=== PATIENT | male | born 1990 | race African-American/Black ===

== ENCOUNTER 2016-10-16 11:27 | Emergency (ER) | payer SELFPAY ==
[~2016-10-16] VITALS: Ht 170.2 cm; Wt 61.4 kg
[~2016-10-16 11:27] MED LIST: MOTRIN600 MG PO; NAPROSYN500 MG PO; PERCOCET 5/31 TABLET PO; TORADOL10 MG PO
[2016-10-16 13:21] LABS: CHLORIDE 106 mEq/L (99-109); POTASSIUM 4.2 mEq/L (3.7-5.4); SODIUM 140 mEq/L (136-147)
[2016-10-16 13:23] LABS: GLUCOSE 101 mg/dL (70-99)
[2016-10-16 13:24] LABS: ANION GAP 10 MEQ/L (2-14)
[2016-10-16 13:27] LABS: GFR ESTIMATE (CALCULATED) > 59 mL/min/
[2016-10-16 13:28] LABS: UREA NITROGEN (BUN) 11 mg/dL (9-23)
[2016-10-16 13:46] LABS: ADD MIUA? NO; BILIRUBIN NEGATIVE; BLOOD NEGATIVE; COLOR STRAW ((YELLOW)); GLUCOSE (STRIP) NEGATIVE; KETONES NEGATIVE; LEUKOCYTES NEGATIVE; NITRITE NEGATIVE; PROTEIN (STRIP) NEGATIVE; SPECIFIC GRAVITY 1.008 (1.000-1.030); UROBILINOGEN 0.2 MG/DL (0.2-1.0)
[2016-10-16] MEDS ORDERED: INDOCIN50 MG PO (14:29)
[2016-10-16 14:51] VITALS: BP 118/74
== END 2016-10-16 15:21 | disposition home or self-care (01) ==
LOC: EME 11:27
PROVIDERS: Physician Assistant
DX: R07.89 Other chest pain (principal); Z72.0 Tobacco use
CPT/HCPCS: 71020; 80048; 81003; 93005; 99281; 99284

== ENCOUNTER 2016-10-18 18:06 | Emergency (ER) | payer OTHER ==
[~2016-10-18] VITALS: Ht 170.2 cm; Wt 58.9 kg
[~2016-10-18 18:06] MED LIST changes: +INDOCIN50 MG PO
[2016-10-18 21:02] LABS: HEMATOCRIT 44.1 % (38.0-50.0); MCH 31.2 PG (29.0-34.0); MCHC 33.1 G/DL (30.0-36.0); MCV 94.2 FL (86-99); MEAN PLAT.VOLUME 9.3 uM^3 (9.0-12.4); PLATELET COUNT 338 K/uL (156-360); RBC DIS.WIDTH-CV 11.6 % (11.8-14.6); RBC DIS.WIDTH-SD 40.3 % (39-53); RED BLOOD COUNT 4.68 M/uL (4.00-5.50); WHITE BLOOD COUNT 7.5 K/uL (4.1-10.2)
[2016-10-18 21:14] LABS: CHLORIDE 103 mEq/L (99-109); POTASSIUM 3.9 mEq/L (3.7-5.4); SODIUM 141 mEq/L (136-147)
[2016-10-18 21:15] LABS: GLUCOSE 96 mg/dL (70-99)
[2016-10-18 21:17] LABS: ANION GAP 15 MEQ/L (2-14); D-DIMER ELISA 0.16 mg/L FEU (< 0.57)
[2016-10-18 21:19] LABS: GFR ESTIMATE (CALCULATED) > 59 mL/min/
[2016-10-18 21:20] LABS: UREA NITROGEN (BUN) 12 mg/dL (9-23)
[2016-10-18 21:26] LABS: TROP-I INTERPRETATION NEGATIVE; TROPONIN-I < 0.01 ng/mL (0.0-0.30)
[2016-10-18 21:51] LABS: ADD MIUA? YES; BILIRUBIN NEGATIVE; BLOOD NEGATIVE; COLOR YELLOW ((YELLOW)); GLUCOSE (STRIP) NEGATIVE; KETONES NEGATIVE; LEUKOCYTES MODERATE; NITRITE NEGATIVE; PROTEIN (STRIP) NEGATIVE; SPECIFIC GRAVITY 1.011 (1.000-1.030); UROBILINOGEN 0.2 MG/DL (0.2-1.0)
[2016-10-18 22:06] LABS: BACTERIA NONE SEEN /HPF; EPITHELIAL CELLS RARE /HPF; MUCUS TRACE /LPF; RED BLOOD CELLS 0-5 /HPF (0-5); WHITE BLOOD CELLS 0-5 /HPF (0-5)
[2016-10-18] MEDS ORDERED: LORAZEPAM0.5 MG PO (23:36)
[2016-10-18] MEDS ORDERED: ZANTAC300 MG PO (23:36)
[2016-10-18 23:55] LABS: TROP-I INTERPRETATION NEGATIVE; TROPONIN-I < 0.01 ng/mL (0.0-0.30)
[2016-10-19 00:39] VITALS: BP 142/81
== END 2016-10-19 00:40 | disposition home or self-care (01) ==
LOC: EME 18:06
PROVIDERS: Emergency Medicine; Physician Assistant
DX: R07.89 Other chest pain (principal); F41.9 Anxiety disorder, unspecified; Z72.0 Tobacco use
CPT/HCPCS: 71020; 80048; 81003; 84484; 85027; 85379; 93005; 99281; 99284

== ENCOUNTER 2017-01-06 13:46 | Emergency (ER) | payer OTHER ==
[~2017-01-06] VITALS: Ht 170.2 cm; Wt 60.3 kg
[~2017-01-06 13:46] MED LIST changes: +LORAZEPAM0.5 MG PO; +ZANTAC300 MG PO
[2017-01-06] MEDS ORDERED: PAXIL20 MG PO (15:03)
[2017-01-06] MEDS ORDERED: CLONAZEPAM0.5 MG PO (15:03)
[2017-01-06] MEDS ORDERED: INDOCIN50 MG PO (16:14)
[2017-01-06] MEDS ORDERED: LIDODERM 5% P1 PATCH TD (16:14)
[2017-01-06 16:30] VITALS: BP 115/89
== END 2017-01-06 16:44 | disposition home or self-care (01) ==
LOC: EME 13:46
DX: S39.012A Strain of muscle, fascia and tendon of lower back, initial encounter (principal); X58.XXXA Exposure to other specified factors, initial encounter; F17.200 Nicotine dependence, unspecified, uncomplicated
CPT/HCPCS: 99281; 99284

== ENCOUNTER 2017-04-02 15:14 | Emergency (ER) | payer OTHER ==
[~2017-04-02] VITALS: Ht 170.2 cm; Wt 62.0 kg
[~2017-04-02 15:14] MED LIST changes: +CLONAZEPAM0.5 MG PO; +LIDODERM 5% P1 PATCH TD; +PAXIL20 MG PO
[2017-04-02] MEDS ORDERED: PERCOCET 5/31 TABLET PO (18:16)
[2017-04-02 18:46] VITALS: BP 150/81
== END 2017-04-02 18:47 | disposition home or self-care (01) ==
LOC: EME 15:14
DX: S16.1XXA Strain of muscle, fascia and tendon at neck level, initial encounter (principal); S39.012A Strain of muscle, fascia and tendon of lower back, initial encounter; R51 Headache; V49.50XA Passenger injured in collision with unspecified motor vehicles in traffic accident, initial encounter; Y92.410 Unspecified street and highway as the place of occurrence of the external cause; F17.200 Nicotine dependence, unspecified, uncomplicated
CPT/HCPCS: 70450; 72110; 72125; 99281; 99284

== ENCOUNTER 2017-10-21 18:22 | Emergency (ER) | payer OTHER ==
[~2017-10-21] VITALS: Ht 170.2 cm; Wt 58.8 kg
[2017-10-21 20:19] LABS: BASOPHIL (%) 0.7 % (0-1); EOSINOPHIL (%) 3.1 % (0-5); EOSINOPHIL COUNT 0.2 K/uL (0-0.3); HEMATOCRIT 40.4 % (38.0-50.0); HEMOGLOBIN 14.3 G/DL (12.5-16.6); IMMATURE GRANULOCYTE (%) 0.2 % (0.0-0.7); LYMPHOCYTE (%) 28.3 % (15-42); LYMPHOCYTE COUNT 1.7 K/uL (1.0-2.8); MCH 31.7 PG (29.0-34.0); MCHC 35.4 G/DL (30.0-36.0); MCV 89.6 FL (86-99); MONOCYTE (%) 9.9 % (3-12); MONOCYTE COUNT 0.6 K/uL (0-0.8); NEUTROPHIL (%) 57.8 % (45-76); NEUTROPHIL COUNT 3.5 K/uL (1.8-6.4); PLATELET COUNT 284 K/uL (156-360); RBC DIS.WIDTH-CV 11.6 % (11.8-14.6); RBC DIS.WIDTH-SD 38.2 % (39-53); RED BLOOD COUNT 4.51 M/uL (4.00-5.50); WHITE BLOOD COUNT 6.1 K/uL (4.1-10.2)
[2017-10-21 20:27] LABS: ALBUMIN 4.6 g/dL (3.2-4.8); CHLORIDE 106 mEq/L (99-109); POTASSIUM 3.8 mEq/L (3.7-5.4); SODIUM 140 mEq/L (136-147)
[2017-10-21 20:29] LABS: GLUCOSE 93 mg/dL (70-99); TOTAL PROTEIN 7.4 g/dL (6.4-8.3)
[2017-10-21 20:31] LABS: TOTAL BILIRUBIN 1.3 mg/dL (0.0-1.0)
[2017-10-21 20:32] LABS: SERUM ETHYL ALCOHOL < 10 mg/dL
[2017-10-21 20:33] LABS: ALKALINE PHOSPHATASE 104 IU/L (3-129); GFR ESTIMATE (CALCULATED) > 59 mL/min/ (58.99-99999)
[2017-10-21 20:34] LABS: AST (GOT) 14 IU/L (2-34); UREA NITROGEN (BUN) 8 mg/dL (9-23)
[2017-10-21 20:36] LABS: ALT (GPT) 9 IU/L (3-49)
[2017-10-21] MEDS ORDERED: ULTRAM50 MG PO (22:33)
[2017-10-21 23:30] VITALS: BP 136/86
== END 2017-10-21 23:32 | disposition home or self-care (01) ==
LOC: EME 18:22
PROVIDERS: Emergency Medicine
DX: S20.229A Contusion of unspecified back wall of thorax, initial encounter (principal); S06.0X0A Concussion without loss of consciousness, initial encounter; W11.XXXA Fall on and from ladder, initial encounter; Y93.H9 Activity, other involving exterior property and land maintenance, building and construction; F41.9 Anxiety disorder, unspecified; F17.200 Nicotine dependence, unspecified, uncomplicated
CPT/HCPCS: 70450; 71260; 72125; 72129; 72132; 74177; 80053; 85025; 99281; 99285; G0480; J7030

== ENCOUNTER 2017-10-26 15:12 | Observation (INO) | payer OTHER ==
[~2017-10-26] VITALS: Ht 170.2 cm; Wt 58.4 kg
[~2017-10-26 15:12] MED LIST changes: +ULTRAM50 MG PO
[2017-10-26 16:05] LABS: HEMATOCRIT 39.1 % (38.0-50.0); HEMOGLOBIN 13.7 G/DL (12.5-16.6); MCH 31.6 PG (29.0-34.0); MCV 90.1 FL (86-99); PLATELET COUNT 287 K/uL (156-360); RBC DIS.WIDTH-CV 11.6 % (11.8-14.6); RBC DIS.WIDTH-SD 38.2 % (39-53); RED BLOOD COUNT 4.34 M/uL (4.00-5.50); WHITE BLOOD COUNT 4.3 K/uL (4.1-10.2)
[2017-10-26 16:13] LABS: ALBUMIN 4.5 g/dL (3.2-4.8); CHLORIDE 108 mEq/L (99-109); SODIUM 140 mEq/L (136-147)
[2017-10-26 16:16] LABS: GLUCOSE 100 mg/dL (70-99); TOTAL PROTEIN 7.2 g/dL (6.4-8.3)
[2017-10-26 16:18] LABS: TOTAL BILIRUBIN 1.5 mg/dL (0.0-1.0)
[2017-10-26 16:19] LABS: ALKALINE PHOSPHATASE 102 IU/L (3-129); CREATININE 0.8 mg/dL (0.6-1.3); GFR ESTIMATE (CALCULATED) > 59 mL/min/ (58.99-99999); SERUM ETHYL ALCOHOL < 10 mg/dL
[2017-10-26 16:21] LABS: AST (GOT) 14 IU/L (2-34); UREA NITROGEN (BUN) 11 mg/dL (9-23)
[2017-10-26 16:22] LABS: ALT (GPT) 9 IU/L (3-49)
[2017-10-26 17:15] LABS: APPEARANCE SL.HAZY ((CLEAR)); BILIRUBIN NEGATIVE; BLOOD NEGATIVE; COLOR YELLOW ((YELLOW)); GLUCOSE (STRIP) NEGATIVE; KETONES NEGATIVE; LEUKOCYTES NEGATIVE; NITRITE NEGATIVE; PROTEIN (STRIP) NEGATIVE; SPECIFIC GRAVITY 1.009 (1.000-1.030); UROBILINOGEN 0.2 MG/DL (0.2-1.0)
[2017-10-26 17:23] LABS: THC CANNABINOIDS NEGATIVE (50 ng/mL)
[2017-10-26 17:24] LABS: AMPHETAMINE NEGATIVE (500 ng/mL); BARBITURATES NEGATIVE (200 ng/mL); BENZODIAZEPINES NEGATIVE (150 ng/mL); BUPRENORPHINE NEGATIVE (10 ng/mL); COCAINE PRESUMPTIVE POSITIVE (150 ng/mL); METHADONE NEGATIVE (200 ng/mL); METHAMPHETAMINE NEGATIVE (500 ng/mL); OPIATES (MORPHINE) NEGATIVE (100 ng/mL); OXYCODONE NEGATIVE (100 ng/mL); PHENCYCLIDINE NEGATIVE (25 ng/mL); PROPOXYPHENE NEGATIVE (300 ng/mL); TRICYCLIC ANTIDEPRESSANTS NEGATIVE (300 ng/mL)
[2017-10-26 17:27] LABS: BACTERIA NONE SEEN /HPF; EPITHELIAL CELLS NONE SEEN /HPF; MUCUS TRACE /LPF; RED BLOOD CELLS 0-5 /HPF (0-5); WHITE BLOOD CELLS 0-5 /HPF (0-5)
[2017-10-26] MEDS ORDERED: PAROXETINE HCL40 MG PO (18:54)
[2017-10-26] MEDS ORDERED: IBUPROFEN800 MG PO (18:56)
[2017-10-26 22:13] VITALS: BP 108/57
[2017-10-27 00:06] VITALS: BP 168/56
[2017-10-27 00:34] LABS: HEMATOCRIT 37.5 % (38.0-50.0); HEMOGLOBIN 13.1 G/DL (12.5-16.6); MCV 90.4 FL (86-99)
[2017-10-27 04:18] VITALS: BP 96/54
[2017-10-27 06:20] LABS: HEMATOCRIT 35.8 % (38.0-50.0); HEMOGLOBIN 12.1 G/DL (12.5-16.6); MCH 31.3 PG (29.0-34.0); MCHC 33.8 G/DL (30.0-36.0); MCV 92.5 FL (86-99); PLATELET COUNT 290 K/uL (156-360); RBC DIS.WIDTH-CV 11.7 % (11.8-14.6); RBC DIS.WIDTH-SD 39.6 % (39-53); RED BLOOD COUNT 3.87 M/uL (4.00-5.50); WHITE BLOOD COUNT 5.4 K/uL (4.1-10.2)
[2017-10-27 06:38] LABS: CHLORIDE 111 MEQ/L (99-109); CREATININE 0.9 MG/DL (0.6-1.3); GFR ESTIMATE (CALCULATED) > 59 mL/min/ (58.99-99999); GLUCOSE 92 mg/dL (70-99); POTASSIUM 3.8 MEQ/L (3.7-5.4); SODIUM 142 MEQ/L (136-147); UREA NITROGEN (BUN) 10 mg/dL (9-23)
[2017-10-27 08:15] VITALS: BP 120/66
[2017-10-27 11:36] VITALS: BP 133/71
[2017-10-27 15:20] VITALS: BP 114/66
== END 2017-10-27 16:37 | disposition home or self-care (01) ==
LOC: EME 15:12 → 4SOUTH 20:34 → EDOF 20:34 → ENRESERV 20:36 → 4SOUTH 21:43
PROVIDERS: Emergency Medicine; Hospitalist
DX: R41.82 Altered mental status, unspecified (principal); R53.83 Other fatigue; F14.10 Cocaine abuse, uncomplicated; M79.602 Pain in left arm; R51 Headache; S06.0X9D Concussion with loss of consciousness of unspecified duration, subsequent encounter; R04.2 Hemoptysis; F41.9 Anxiety disorder, unspecified; Z88.6 Allergy status to analgesic agent
CPT/HCPCS: 70450; 70551; 71260; 73030; 74177; 80048; 80053; 81003; 84999; 85014; 85018; 85027; 95819; 99281; 99285; G0378; G0480; G8978 GP CJ; G8979 GP CH; G8980 CJ; G8987 GO CJ; G8988 GO CH; G8989 CJ; J3010; J7030

== ENCOUNTER 2017-11-10 02:58 | Emergency (ER) | payer OTHER ==
[~2017-11-10] VITALS: Ht 170.2 cm; Wt 57.6 kg
[~2017-11-10 02:58] MED LIST changes: +IBUPROFEN800 MG PO; +PAROXETINE HCL40 MG PO
[2017-11-10 03:53] LABS: HEMOGLOBIN 14.3 G/DL (12.5-16.6); MCH 32.4 PG (29.0-34.0); MCHC 36.7 G/DL (30.0-36.0); PLATELET COUNT 327 K/uL (156-360); RBC DIS.WIDTH-CV 11.8 % (11.8-14.6); RBC DIS.WIDTH-SD 38.4 % (39-53); RED BLOOD COUNT 4.42 M/uL (4.00-5.50)
[2017-11-10 03:54] LABS: MCV 88.2 FL (86-99)
[2017-11-10 04:01] LABS: ALBUMIN 4.7 g/dL (3.2-4.8); CHLORIDE 104 mEq/L (99-109); POTASSIUM 3.4 mEq/L (3.7-5.4); SODIUM 137 mEq/L (136-147)
[2017-11-10 04:03] LABS: GLUCOSE 108 mg/dL (70-99)
[2017-11-10 04:04] LABS: TOTAL PROTEIN 7.7 g/dL (6.4-8.3)
[2017-11-10 04:05] LABS: TOTAL BILIRUBIN 1.6 mg/dL (0.0-1.0)
[2017-11-10 04:07] LABS: ALKALINE PHOSPHATASE 99 IU/L (3-129); GFR ESTIMATE (CALCULATED) > 59 mL/min/ (58.99-99999)
[2017-11-10 04:09] LABS: AST (GOT) 20 IU/L (2-34); UREA NITROGEN (BUN) 13 mg/dL (9-23)
[2017-11-10 04:10] LABS: ALT (GPT) 16 IU/L (3-49); LIPASE 36 U/L (1.0-51.0)
[2017-11-10 04:46] LABS: APPEARANCE SL.HAZY ((CLEAR)); BILIRUBIN NEGATIVE; BLOOD LARGE; COLOR YELLOW ((YELLOW)); GLUCOSE (STRIP) NEGATIVE; KETONES 20; LEUKOCYTES MODERATE; NITRITE NEGATIVE; PROTEIN (STRIP) 30; SPECIFIC GRAVITY 1.019 (1.000-1.030)
[2017-11-10 04:51] LABS: BACTERIA RARE /HPF; EPITHELIAL CELLS RARE /HPF; MUCUS TRACE /LPF; RED BLOOD CELLS TNTC /HPF (0-5)
[2017-11-10 05:17] LABS: COCAINE PRESUMPTIVE POSITIVE (150 ng/mL); METHAMPHETAMINE NEGATIVE (500 ng/mL); OPIATES (MORPHINE) NEGATIVE (100 ng/mL); PHENCYCLIDINE NEGATIVE (25 ng/mL); THC CANNABINOIDS PRESUMPTIVE POSITIVE (50 ng/mL)
[2017-11-10 05:18] LABS: AMPHETAMINE NEGATIVE (500 ng/mL); BARBITURATES NEGATIVE (200 ng/mL); BENZODIAZEPINES NEGATIVE (150 ng/mL); BUPRENORPHINE NEGATIVE (10 ng/mL); METHADONE NEGATIVE (200 ng/mL); OXYCODONE PRESUMPTIVE POSITIVE (100 ng/mL); PROPOXYPHENE NEGATIVE (300 ng/mL); TRICYCLIC ANTIDEPRESSANTS NEGATIVE (300 ng/mL)
[2017-11-10] MEDS ORDERED: LEVAQUIN750 MG PO (05:24)
[2017-11-10 06:13] VITALS: BP 117/74
== END 2017-11-10 06:13 | disposition home or self-care (01) ==
LOC: EME 02:58
PROVIDERS: Emergency Medicine
DX: F19.10 Other psychoactive substance abuse, uncomplicated (principal); N39.0 Urinary tract infection, site not specified; Z88.6 Allergy status to analgesic agent
CPT/HCPCS: 80053; 81003; 83690; 84999; 85027; 99281; 99284